=== PATIENT | female | born 1985 | race African-American/Black ===

== ENCOUNTER 2016-12-27 20:32 | Emergency (ER) | payer MEDICAID, OTHER ==
[~2016-12-27] VITALS: Ht 175.3 cm; Wt 117.9 kg
[~2016-12-27 20:32] MED LIST: IBUPROFEN600 MG ORAL; KEFLEX500 MG ORAL; MECLIZINE HCL25 MG ORAL; TRAMADOL HCL50 MG ORAL
[2016-12-27 20:45] VITALS: BP 123/73
--- NOTE | 2016-12-27 20:52 | Emergency Room Report ---
History of Present Illness General Chief Complaint: Pelvic Pain Source: Patient Present Illness HPI The patient is 8 months and complains about pelvic pain. She states it 's constant. She complains it is 7/10 - bilaterally pelvis, some radiating to back. With her prior she had pain that was as severe and like this. She denies any contractions at this time. Denies rupture of membranes and any bleeding. Denies dysuria. She is taking Tylenol. She has an appointment with her doctor tomorrow. She is due February 27. Is occasionally a little swelling in her ankles but not the moment. She feels the baby moving. Seen in 2016 with back pain with h/o scoliosis. No diabetes, HTN. Not on any chronic medications aside from vitamins. No fever, cough, dyspnea, NVD. No depression. Allergies: Coded Allergies: Shrimp (Verified Allergy, Unknown, 12/27/16) Patient History Past Medical History: see triage record Social History: Denies: smoking Social History Narrative Has child at home Last Menstrual Period: 8 months Now: Yes : 2 Para: 2 Reviewed Nursing Documentation: PMH: Agreed, PSxH: Agreed Nursing Documentation-PMH Past Medical History: No History, Except For Hx Asthma: Yes Review of Systems All Other Systems: negative except mentioned in HPI Physical Exam Vital Signs Date Time Temp Pulse Resp B/P (MAP) Pulse Ox O2 Delivery O2 Flow Rate FiO2 12/27/16 20:35 97.9 90 18 123/73 99 Room Air Sp02 EP Interpretation: reviewed, normal General Appearance: well appearing, no apparent distress, GCS 15 Head: normocephalic Eyes: bilateral eye normal inspection, bilateral eye PERRL, bilateral eye EOMI ENT: moist mucus membranes Neck: supple Respiratory: lungs clear, normal breath sounds Cardiovascular #1: regular rate, rhythm, no edema Cardiovascular #2: 2+ radial (R) Gastrointestinal: normal inspection, normal bowel sounds, non tender, other - gravid, no tenderness Genitourinary: no CVA tenderness, deferred Musculoskeletal: back normal, gait/station normal, normal range of motion, no calf tenderness Neurologic: alert, oriented x3, grossly normal Psychiatric: anxious Skin: normal inspection, warm/dry Medical Decision Making Diagnostic Impression: Primary Impression: Pelvic pain Additional Impression: 8 months ER Course Patient with pelvic pain 8 months . Ddx: labor, low lying baby , mechanical back pain, UTI. She denies contractions, rupture membranes and bleeding. Consider transfer to [facility] for observation. Will treat with tylenol and check FHTs. FHTs 135. UA clear. Improved with tylenol. Baby kicking. Observation not indicated at this time. Discussed observation at home and if pain worsens or contractions to go to [facility]. She will be seeing her Ob tomorrow. Patient stable for outpatient observation and treatment. Laboratory Tests Test 12/27/16 20:45 Urine Color Pale yellow Urine Appearance Slightly cloudy Urine pH 8 (4.5-8.0) Urine Specific [place] 1.015 (1.005-1.035) Urine Protein Negative (NEGATIVE) Urine Glucose (UA) Negative (NEGATIVE) Urine Ketones Negative (NEGATIVE) Urine Occult Blood Negative (NEGATIVE) Urine Nitrite Negative (NEGATIVE) Urine Bilirubin Negative (NEGATIVE) Urine Urobilinogen Normal MG/DL (0.0-1.0) Urine Leukocyte Esterase 1+ (NEGATIVE) H Urine RBC 0-2 /HPF (0 - 2) Urine WBC 2-4 /HPF (0 - 2) Urine Squamous Epithelial Cells Many /LPF (NONE/OCC) H Urine Bacteria Few /HPF (NONE) Last Vital Signs Date Time Temp Pulse Resp B/P (MAP) Pulse Ox O2 Delivery O2 Flow Rate FiO2 12/27/16 22:35 97.9 18 123/73 99 Room Air 12/27/16 20:35 90 Status: improved Disposition: HOME, SELF-CARE Condition: Improved Scripts Acetaminophen (Tylenol) 325 Mg Tablet 650 MG ORAL Q6H Y for Prn Pain/Headache/Temp > 101, #20 TAB 0 Refills Prov: Amaury Lopez M.D. 12/27/16 Amaury Lopez M.D. Dec 27, 2016 20:52
[2016-12-27 21:20] LABS: APPEARANCE,URINE SLIGHTLY CLOUDY; KETONES,URINE NEGATIVE (NEGATIVE); LEUKOCYTE ESTERASE ,URINE 1+ (NEGATIVE); NITRITE,URINE NEGATIVE (NEGATIVE); PH,URINE 8 (4.5-8.0); PROTEIN,URINE NEGATIVE (NEGATIVE); UROBILINOGEN,URINE NORMAL MG/DL (0.0-1.0)
[2016-12-27 21:43] LABS: BACTERIA,URINE FEW /HPF; RBC,URINE 0-2 /HPF (0 - 2); SQUAMOUS EPITHELIAL CELL,UR MANY /LPF (NONE/OCC)
[2016-12-27] MEDS ORDERED: TYLENOL325 MG ORAL (22:02)
[2016-12-27 22:35] VITALS: BP 123/73
== END 2016-12-27 22:35 | disposition home or self-care (01) ==
LOC: EMR 21:00
DX: R10.2 Pelvic and perineal pain (principal); O26.93 Pregnancy related conditions, unspecified, third trimester; Z3A.00 Weeks of gestation of pregnancy not specified; Z91.013 Allergy to seafood
CPT/HCPCS: 81003; 99283